=== PATIENT | male | born 1985 | race African-American/Black ===

== ENCOUNTER 2019-11-13 09:02 | Emergency (ER) | payer SELFPAY ==
[~2019-11-13] VITALS: Ht 180.3 cm; Wt 127.0 kg
[2019-11-13 09:08] VITALS: BP 153/86
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
[2019-11-13] MEDS ORDERED: HYDROcodone/APAP 5/325 MG 1 TAB TAB PO ONE (09:30)
[2019-11-13] MEDS ORDERED: KETOROLAC 60 MG/2 ML VIAL IM ONE (09:30)
--- NOTE | 2019-11-13 09:37 | NUR ---
PT TO XRAY VIA WHEELCHAIR
--- NOTE | 2019-11-13 09:47 | NUR ---
PT RETURNED FROM XRAY VIA WHEELCHAIR
[2019-11-13 10:43] VITALS: BP 144/82
== END 2019-11-13 10:43 | disposition home or self-care (01) ==
LOC: MED 09:02
DX: S13.4XXA Sprain of ligaments of cervical spine, initial encounter (principal); W22.8XXA Striking against or struck by other objects, initial encounter; Y93.89 Activity, other specified; Y92.89 Other specified places as the place of occurrence of the external cause; Y99.8 Other external cause status
CPT/HCPCS: 72040; 73030; 96372; 99284; J1885